=== PATIENT | female | born 1990 | race Caucasian/White ===

== ENCOUNTER 2017-01-27 17:10 | Emergency (ER) | payer BC, OTHER ==
[~2017-01-27] VITALS: Ht 167.6 cm; Wt 59.0 kg
[2017-01-27] MEDS ORDERED: NS IV 1000 ML 1,000 ML IV ONE (17:30)
[2017-01-27] MEDS ORDERED: diphenhydrAMINE 50 MG/ML INJ (BENADRYL) IVP ONE (17:30)
[2017-01-27] MEDS ORDERED: PROMETHAZINE INJ 25 MG/ML (PHENERGAN) AMP ONE (17:33)
[2017-01-27 18:21] LABS: ANION GAP 10 MMOL/L (5-14); BLOOD UREA NITROGEN 6 MG/DL (7-18); BUN/CREATININE RATIO 9; CALCIUM 8.5 MG/DL (8.5-10.1); CARBON DIOXIDE 23 MMOL/L (21-32); CHLORIDE 105 MMOL/L (98-107); CREATININE SERUM 0.64 MG/DL (0.60-1.30); GFR ESTIMATED > 60; GLUCOSE 74 MG/DL (70-105); POTASSIUM 3.3 MMOL/L (3.6-5.0); SODIUM 138 MMOL/L (135-145)
--- NOTE | 2017-01-27 18:33 | ED GI ---
General Stated Complaint: NAUSEA/17 WEEKS PREG Source of Information: Patient Exam Limitations: No Limitations History of Present Illness Time Seen By Provider: 17:20 Initial Comments This 26-year-old young lady at 17 weeks gestational age presents to the emergency room with lower abdominal cramping and intense nausea and vomiting. She has been using Zofran at home for hyperemesis but ran out today. She moved here from [place] and plans to see Dr. Hernández or Dr. Mc. She denies any vaginal bleeding, dysuria, fever, diarrhea, or constipation. heart tones by Doppler were 150. Allergies and Home Medications Allergies Coded Allergies: amoxicillin (Verified Allergy, Unknown, 01/27/17) Home Medications Doxylamine/Pyridoxine HCl 1 Each Tablet.dr, 2 EACH PO HS, #60 Prescribed by: BROOK GALINDO on 01/27/171937 Ondansetron 4 Mg Tab.rapdis, 4 MG SL Q4H PRN for NAUSEA/VOMITING-1ST LINE, #30 Prescribed by: BROOK GALINDO on 01/27/171937 Promethazine HCl 25 Mg Supp.rect, 25 MG RC TID PRN for NAUSEA/VOMITING-2ND LINE , #20 Prescribed by: BROOK GALINDO on 01/27/171937 Review of Systems Constitutional: no symptoms reported EENTM: No Symptoms Reported Respiratory: No Symptoms Reported Cardiovascular: No Symptoms Reported Gastrointestinal: See HPI Genitourinary: No Symptoms Reported Musculoskeletal: no symptoms reported Skin: no symptoms reported Psychiatric/Neurological: No Symptoms Reported Endocrine: No Symptoms Reported Hematologic/Lymphatic: No Symptoms Reported Past Yzibxsm-Aynlbo-Jffoxl Hx Patient Social History Recent Foreign Travel: No Contact w/Someone Who Travel: No Surgeries HX Surgeries: Yes Surgeries: Adenoidectomy, Tonsillectomy Respiratory Hx Respiratory Disorders: No Cardiovascular Hx Cardiac Disorders: No Neurological Hx Neurological Disorders: No Reproductive System : Yes Genitourinary Hx Genitourinary Disorders: No Gastrointestinal Hx Gastrointestinal Disorders: Yes (Hyperemesis) Musculoskeletal Hx Musculoskeletal Disorders: No Endocrine Hx Endocrine Disorders: No HEENT HX ENT Disorders: No Cancer Hx Cancer: No Psychosocial Hx Psychiatric Problems: No Physical Exam Vital Signs VS - Last 72 Hours, by Label 01/27/17 01/27/17 17:35 19:47 Temp 98.0 Pulse 86 74 Resp 18 18 B/P (MAP) 116/73 Pulse Ox 99 99 Capillary Refill : General Appearance: WD/WN, mild distress HEENT: PERRL/EOMI, normal ENT inspection, pharynx normal Neck: normal inspection Respiratory: lungs clear, normal breath sounds, no respiratory distress, no accessory muscle use Cardiovascular: no edema, no murmur, tachycardia Gastrointestinal: normal bowel sounds, soft, tenderness (Mild in the pelvic region) Extremities: normal inspection, no pedal edema Pelvic: other ( heart tones by Doppler were 150) Neurologic/Psychiatric: scraper meat II-XII nml as tested, no motor/sensory deficits, alert, normal mood/affect, oriented x 3 Skin: normal color, warm/dry Progress/Results/Core Measures Results/Orders Lab Results Laboratory Tests Test 01/27/17 17:35 01/27/17 18:44 Range/Units Sodium Level 138 135-145 MMOL/L Potassium Level 3.3 L 3.6-5.0 MMOL/L Chloride Level 105 98-107 MMOL/L Carbon Dioxide Level 23 21-32 MMOL/L Anion Gap 10 5-14 MMOL/L Blood Urea Nitrogen 6 L 7-18 MG/DL Creatinine 0.64 0.60-1.30 MG/DL Estimat Glomerular Filtration Rate > 60 BUN/Creatinine Ratio 9 Glucose Level 74 70-105 MG/DL Calcium Level 8.5 8.5-10.1 MG/DL Urine Color YELLOW Urine Clarity CLEAR Urine pH 7 5-9 Urine Specific [place] 1.010 L 1.016-1.022 Urine Protein NEGATIVE NEGATIVE Urine Glucose (UA) NEGATIVE NEGATIVE Urine Ketones 2+ H NEGATIVE Urine Nitrite NEGATIVE NEGATIVE Urine Bilirubin NEGATIVE NEGATIVE Urine Urobilinogen NORMAL NORMAL MG/DL Urine Leukocyte Esterase NEGATIVE NEGATIVE Urine RBC (Auto) NEGATIVE NEGATIVE Urine RBC NONE /HPF Urine WBC NONE /HPF Urine Squamous Epithelial Cells 5-10 /HPF Urine Crystals NONE /LPF Urine Bacteria NONE /HPF Urine Casts NONE /LPF Urine Mucus NEGATIVE /LPF Urine Culture Indicated NO My Orders Orders - BROOK PULLIAM MD Saline Lock/Iv-Start (01/27/17 17:30) Basic Metabolic Panel (01/27/17 17:30) Diphenhydramine Injection (Benadryl Inje (01/27/17 17:30) Ns Iv 1000 Ml (Sodium Chloride 0.9%) (01/27/17 17:30) Ua Culture If Indicated (01/27/17 17:33) Promethazine Injection (Phenergan Injec (01/27/17 17:33) Potassium Chloride (Tablet) (Klor Con Ta (01/27/17 19:00) Ondansetron Injection (Zofran Injectio (01/27/17 19:00) Medications Given in ED Vital Signs/I&O Vital Sign - Last 12Hours 01/27/17 01/27/17 17:35 19:47 Temp 98.0 Pulse 86 74 Resp 18 18 B/P (MAP) 116/73 Pulse Ox 99 99 Progress Note : Progress Note Patient was initially treated with Phenergan, Benadryl, and a liter of IV fluids. The Phenergan made her feel jittery and she still had some residual nausea. She was given Zofran by IV route. Cramping resolved. Potassium replacement was given by oral route Departure Impression Impression: Primary Impression: Vomiting affecting Additional Impression: Hypokalemia Disposition: 01 HOME, SELF-CARE Condition: Improved Departure-Patient Inst. Decision time for Depature: 19:34 Referrals: ABRIL HERNÁNDEZ DO (PCP) Primary Care Physician NO,LOCAL PHYSICIAN (Family) Primary Care Physician Patient Instructions: Hypokalemia Add. Discharge Instructions: Drink plenty of clear liquids. Resume Zofran as prescribed for control of nausea. You may also try Diclegis as prescribed. Use promethazine as a backup nausea medication if necessary. Taking Benadryl 50 mg by mouth with promethazine may reduce the side effects. Eat small frequent meals and snacks to reduce nausea. 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 Return to care if symptoms worsen. Scripts Doxylamine/Pyridoxine HCl (Diclegis Dr 10-10 mg Tablet) 1 Each Tablet.dr 2 EACH PO HS, #60 TAB Prov: BROOK PULLIAM MD 01/27/17 Promethazine HCl (Promethazine Suppository) 25 Mg Supp.rect 25 MG RC TID Y for NAUSEA/VOMITING-2ND LINE, #20 SUPP.RECT Prov: BROOK PULLIAM MD 01/27/17 Ondansetron (Zofran Odt) 4 Mg Tab.rapdis 4 MG SL Q4H Y for NAUSEA/VOMITING-1ST LINE, #30 TAB Prov: BROOK PULLIAM MD 01/27/17 BROOK PULLIAM MD Jan 27, 2017 18:33
[2017-01-27] MEDS ORDERED: ONDANSETRON 4 MG/2 ML (SDV) Z0FRAN IVP ONE (19:00)
[2017-01-27] MEDS ORDERED: KCL 10 MEQ TAB (MICRO K) PO ONE (19:00)
[2017-01-27 19:05] LABS: BILIRUBIN,URINE NEGATIVE (NEGATIVE); KETONES,URINE 2+ (NEGATIVE); LEUKOCYTE ESTERASE ,URINE NEGATIVE (NEGATIVE); NITRITE,URINE NEGATIVE (NEGATIVE); PH,URINE 7 (5-9); PROTEIN,URINE NEGATIVE (NEGATIVE); UROBILINOGEN,URINE NORMAL (NORMAL)
[2017-01-27] MEDS ORDERED: DOXY1TAB3 PO (19:38)
[2017-01-27] MEDS ORDERED: ONDA4TAB8 SL (19:38)
[2017-01-27] MEDS ORDERED: PROM25SU44 RC (19:38)
[2017-01-27 19:47] VITALS: BP 135/55
== END 2017-01-27 19:47 | disposition home or self-care (01) ==
LOC: EDUNIT# 17:10 → ER 17:15
DX: O21.1 Hyperemesis gravidarum with metabolic disturbance (principal); Z3A.17 17 weeks gestation of pregnancy
CPT/HCPCS: 36415; 80048; 81000; 96361; 96374; 96375

== ENCOUNTER → 2017-02-17 | Outpatient (CLI) | payer BC, MEDICAID ==
[~2017-02-17] MED LIST: DOXY1TAB3 PO; ONDA4TAB8 SL; PROM25SU44 RC
--- NOTE | 2017-02-17 12:00 | Diagnostic Imaging Report ---
INDICATION: survey. TECHNIQUE: Multiple real-time grayscale images were obtained over the gravid uterus. COMPARISON: None FINDINGS: There is a single intrauterine . heart rate is 158 beats per minute. The placenta is anterior. There is no placenta previa. The cervix is 3.3 cm in length and is closed. Amniotic fluid appears to be adequate. anatomy evaluation demonstrates unremarkable appearance of the stomach, four-chamber view, no hydronephrosis or cystic mass in the kidneys. Unremarkable appearance of the spine and the posterior fossa. 5 mm colloid cyst is seen. The cord insertion appears unremarkable. Three-vessel cord is not well demonstrated due to position. Biometrical measurements are as follows: Biparietal 4.5 cm, age 19 weeks 6 days. Head circumference 17.3 cm, age 20 weeks 0 days. Abdominal circumference 14.5 cm, age 19 weeks 6 days. Femur length 3.2 cm, age 20 weeks 1 days. Sonographic estimate age: 20 weeks 0 days. This compares to current gestational age of 19 weeks and 4 days based on assigned ADAMA of 07/10/2017. Sonographic estimated date of delivery: 07/07/17. Estimated Weight: 321 gm (+/- +/-47 gm). LMP percentile: 66%. heart rate: 158 beats per minute. number: 1 of 1. IMPRESSION: 1. There is a choroid plexus cyst in the right lateral ventricle which is a soft marker for chromosomal anomalies. Consider detailed anatomic evaluation in a specialized center. 2. Followup to reevaluate three-vessel cord is recommended. Dictated by: Dictated on workstation # [id number]
== END ==
LOC: RAD 10:11
PROVIDERS: ATTEND Obstetrics & Gynecology
DX: Z34.82 Encounter for supervision of other normal pregnancy, second trimester (principal)
CPT/HCPCS: 76805

== ENCOUNTER 2017-03-14 11:58 | Outpatient (CLI) | payer BC, MEDICAID ==
[~2017-03-14] VITALS: Ht 167.6 cm; Wt 61.7 kg
[2017-03-14 12:42] VITALS: BP 111/60
[2017-03-14] MEDS ORDERED: CITRIC ACID/SOB CIT (BICITRA) 30 ML UDC PO PRN (12:49)
[2017-03-14] MEDS ORDERED: D5 LR IV SOLUTION 1,000 ML IV SCH (13:00)
[2017-03-14] MEDS ORDERED: BUTORPHANOL INJ 2 MG/ML (STADOL) VIAL IV PRN (13:00)
[2017-03-14] MEDS: ONDANSETRON 4 MG/2 ML (SDV) Z0FRAN IVP PRN ×2 (13:52→17:45)
[2017-03-14 14:05] LABS: BASOPHILS # (AUTO) 0.1 10^3/uL (0.0-0.1); BASOPHILS % (AUTO) 1 % (0-10); EOSINOPHILS # (AUTO) 0.1 10^3/uL (0.0-0.3); EOSINOPHILS % (AUTO) 1 % (0-10); LYMPHOCYTES # (AUTO) 1.8 X 10^3 (1.0-4.0); LYMPHOCYTES % (AUTO) 16 % (12-44); MEAN CORPUSCULAR HEMOGLOBIN 29 PG (25-34); MEAN CORPUSCULAR HGB CONC 34 G/DL (32-36); MEAN CORPUSCULAR VOLUME 87 FL (80-99); MEAN PLATELET VOLUME 11.3 FL (7.4-10.4); MONOCYTES # (AUTO) 0.7 X 10^3 (0.0-1.0); MONOCYTES % (AUTO) 7 % (0-12); NEUTROPHILS # (AUTO) 8.1 X 10^3 (1.8-7.8); NEUTROPHILS % (AUTO) 76 % (42-75); PLATELET COUNT 266 10^3/uL (130-400); RED BLOOD COUNT 4.07 10^6/uL (4.35-5.85); RED CELL DISTRIBUTION WIDTH 12.9 % (10.0-14.5); WHITE BLOOD COUNT 10.7 10^3/uL (4.3-11.0)
[2017-03-14 14:22] LABS: ALANINE AMINOTRANSFERASE 21 U/L (0-55); ALBUMIN 3.7 G/DL (3.2-4.5); ANION GAP 12 MMOL/L (5-14); ASPARTATE AMINO TRANSFERASE 26 U/L (5-34); BILIRUBIN,TOTAL 0.6 MG/DL (0.1-1.0); BLOOD UREA NITROGEN 7 MG/DL (7-18); BUN/CREATININE RATIO 12; CALCIUM 9.5 MG/DL (8.5-10.1); CARBON DIOXIDE 22 MMOL/L (21-32); CHLORIDE 103 MMOL/L (98-107); CREATININE SERUM 0.59 MG/DL (0.60-1.30); GFR ESTIMATED > 60; GLUCOSE 72 MG/DL (70-105); POTASSIUM 3.8 MMOL/L (3.6-5.0); SODIUM 137 MMOL/L (135-145); TOTAL PROTEIN 6.8 G/DL (6.4-8.2)
[2017-03-14 14:39] LABS: BILIRUBIN,URINE NEGATIVE (NEGATIVE); KETONES,URINE 4+ (NEGATIVE); LEUKOCYTE ESTERASE ,URINE 1+ (NEGATIVE); NITRITE,URINE NEGATIVE (NEGATIVE); PH,URINE 7 (5-9); PROTEIN,URINE 1+ (NEGATIVE); SQUAMOUS EPITHELIAL CELL,UR 0-2 /HPF; UROBILINOGEN,URINE 4 MG/DL (NORMAL); WBC,URINE 0-2 /HPF
[2017-03-14] MEDS ORDERED: PNV11TAB5 PO (18:22)
[2017-03-14] MEDS ORDERED: CLIN150C17 PO (18:22)
== END 2017-03-14 19:30 | disposition home or self-care (01) ==
LOC: WSo 11:58 → LDRP 12:00 → WSo 19:30
PROVIDERS: ATTEND Obstetrics & Gynecology
DX: O99.612 Diseases of the digestive system complicating pregnancy, second trimester (principal); K21.9 Gastro-esophageal reflux disease without esophagitis; Z3A.23 23 weeks gestation of pregnancy
CPT/HCPCS: 36415; 80053; 81000; 85025; 87088; 96361; 96374; 96375; 96376; 99214

== ENCOUNTER 2017-03-30 14:08 | Outpatient (CLI) | payer BC, MEDICAID ==
[~2017-03-30] VITALS: Ht 167.6 cm; Wt 65.3 kg
[~2017-03-30 14:08] MED LIST changes: +CLIN150C17 PO; +PNV11TAB5 PO
[2017-03-30 14:28] VITALS: BP 137/68
[2017-03-30 14:44] VITALS: BP 112/60
[2017-03-30 15:00] VITALS: BP 113/62
[2017-03-30] MEDS ORDERED: D5 LR IV SOLUTION 1,000 ML IV ONE (15:02)
[2017-03-30] MEDS: D5 LR IV SOLUTION 1,000 ML IV SCH ×2 (15:20→17:02)
[2017-03-30] MEDS ORDERED: ONDANSETRON 4 MG/2 ML (SDV) Z0FRAN IVP ONE (15:30)
[2017-03-30 15:46] LABS: BASOPHILS % (AUTO) 0 % (0-10); EOSINOPHILS # (AUTO) 0.1 10^3/uL (0.0-0.3); EOSINOPHILS % (AUTO) 0 % (0-10); LYMPHOCYTES % (AUTO) 14 % (12-44); MEAN CORPUSCULAR HEMOGLOBIN 28 PG (25-34); MEAN CORPUSCULAR HGB CONC 32 G/DL (32-36); MEAN CORPUSCULAR VOLUME 88 FL (80-99); MEAN PLATELET VOLUME 11.2 FL (7.4-10.4); MONOCYTES # (AUTO) 0.7 X 10^3 (0.0-1.0); MONOCYTES % (AUTO) 5 % (0-12); NEUTROPHILS # (AUTO) 11.9 X 10^3 (1.8-7.8); NEUTROPHILS % (AUTO) 81 % (42-75); PLATELET COUNT 289 10^3/uL (130-400); RED BLOOD COUNT 3.77 10^6/uL (4.35-5.85); RED CELL DISTRIBUTION WIDTH 12.4 % (10.0-14.5); WHITE BLOOD COUNT 14.7 10^3/uL (4.3-11.0)
[2017-03-30 16:00] LABS: ALANINE AMINOTRANSFERASE 45 U/L (0-55); ALBUMIN 3.6 GM/DL (3.2-4.5); ANION GAP 11 MMOL/L (5-14); ASPARTATE AMINO TRANSFERASE 39 U/L (5-34); BILIRUBIN,TOTAL 0.5 MG/DL (0.1-1.0); BLOOD UREA NITROGEN 8 MG/DL (7-18); BUN/CREATININE RATIO 13 (0-20); CARBON DIOXIDE 24 MMOL/L (21-32); CHLORIDE 103 MMOL/L (98-107); CREATININE SERUM 0.61 MG/DL (0.60-1.30); GFR ESTIMATED > 60; GLUCOSE 90 MG/DL (70-105); HEMOLYSIS 5 (-100-29); LIPEMIA 23 (-100-49); POTASSIUM 3.3 MMOL/L (3.6-5.0); SODIUM 138 MMOL/L (135-145); TOTAL PROTEIN 6.5 GM/DL (6.4-8.2)
[2017-03-30 16:10] VITALS: BP 127/63
[2017-03-30 16:14] LABS: BAND NEUTROPHILS 2 %; BASOPHILS % (MANUAL) 0 %; EOSINOPHILS % (MANUAL) 0 %; LYMPHOCYTES % (MANUAL) 10 %; NEUTROPHILS % (MANUAL) 88 %
[2017-03-30 18:15] VITALS: BP 127/63
--- NOTE | 2017-03-31 15:16 | Physician Query-Final Dx ---
HOLLI CHANEY 03/31/17 1516: Clinic Account Progress/Dx Physician Query: Please give diagnosis Date of Service Mar 30, 2017 at 14:08 HAWA MAE MD 03/31/17 1750: Clinic Account Progress/Dx DIAGNOSIS: Diagnosis false labor HOLLI CHANEY Mar 31, 2017 15:16 HAWA MAE MD Mar 31, 2017 17:50
== END 2017-03-30 18:15 | disposition home or self-care (01) ==
LOC: WSo 14:08 → LDRP 14:09 → WSo 18:15
PROVIDERS: ATTEND Obstetrics & Gynecology
DX: O47.02 False labor before 37 completed weeks of gestation, second trimester (principal); Z3A.25 25 weeks gestation of pregnancy
CPT/HCPCS: 36415; 80053; 85007; 85027; 96361; 96374; 99214

== ENCOUNTER → 2017-04-15 | Outpatient (CLI) | payer BC, MEDICAID ==
[~2017-04-15] MED LIST changes: +ACET1TAB43 PO; +BENZ56AE2 TP; +DIPH25CA79 PO; +DOCU100C37 PO; +FERR-74 PO; +FERR-84 PO; +IBUP-1773 PO; +URSO300C3 PO
--- NOTE | 2017-04-15 11:47 | Diagnostic Imaging Report ---
INDICATION: Followup three-vessel cord. Choroid plexus cyst was seen previously. TECHNIQUE: Multiple real-time grayscale images were obtained over the gravid uterus. COMPARISON: 02/17/2017 FINDINGS: heart rate is 150 beats per minute. The placenta is anterior. No placenta previa. The position is cephalic. There is evidence of three-vessel cord. Normal amniotic fluid with CARMEL of 12.5 cm is seen. The lateral ventricles appear normal with no choroid plexus cyst seen at this time. IMPRESSION: Completed survey. Dictated by: Dictated on workstation # [id number]
== END ==
LOC: RAD 10:12
PROVIDERS: ATTEND Obstetrics & Gynecology
DX: Z36 Encounter for antenatal screening of mother (principal); Z3A.00 Weeks of gestation of pregnancy not specified
CPT/HCPCS: 76816

== ENCOUNTER 2017-04-23 14:55 | Outpatient (CLI) | payer BC, MEDICAID ==
[~2017-04-23] VITALS: Ht 167.6 cm; Wt 66.2 kg
[2017-04-23 14:55] VITALS: BP 128/84
[~2017-04-23 14:55] MED LIST changes: -ACET1TAB43 PO; -BENZ56AE2 TP; -DIPH25CA79 PO; -DOCU100C37 PO; -FERR-74 PO; -FERR-84 PO; -IBUP-1773 PO; -URSO300C3 PO
[2017-04-23 15:23] LABS: BILIRUBIN,URINE NEGATIVE (NEGATIVE); KETONES,URINE 2+ (NEGATIVE); LEUKOCYTE ESTERASE ,URINE 1+ (NEGATIVE); NITRITE,URINE NEGATIVE (NEGATIVE); PH,URINE 7 (5-9); PROTEIN,URINE 2+ (NEGATIVE); UROBILINOGEN,URINE 1 MG/DL (NORMAL)
[2017-04-23] MEDS ORDERED: FERR-84 PO ×2 (15:26)
[2017-04-23 15:30] VITALS: BP 107/70
[2017-04-23 15:41] LABS: CALCIUM OXALATE CRYSTALS,UR MODERATE /LPF; SQUAMOUS EPITHELIAL CELL,UR 25-50 /HPF
[2017-04-23 16:00] VITALS: BP 109/61
[2017-04-23] MEDS ORDERED: D5 LR IV SOLUTION 1,000 ML IV SCH (16:00)
[2017-04-23] MEDS ORDERED: NS IV 1000 ML 1,000 ML IV SCH (16:00)
[2017-04-23] MEDS ORDERED: ONDANSETRON 4 MG/2 ML (SDV) Z0FRAN IVP ONE (16:00)
[2017-04-23 16:30] VITALS: BP 117/73
[2017-04-23 16:30] LABS: MEAN PLATELET VOLUME 11.1 FL (7.4-10.4); RED BLOOD COUNT 3.62 10^6/uL (4.35-5.85); RED CELL DISTRIBUTION WIDTH 12.7 % (10.0-14.5); WHITE BLOOD COUNT 14.4 10^3/uL (4.3-11.0)
[2017-04-23 16:53] LABS: ALANINE AMINOTRANSFERASE 71 U/L (0-55); ALBUMIN 3.3 GM/DL (3.2-4.5); ANION GAP 10 MMOL/L (5-14); ASPARTATE AMINO TRANSFERASE 44 U/L (5-34); BILIRUBIN,TOTAL 0.6 MG/DL (0.1-1.0); BLOOD UREA NITROGEN 6 MG/DL (7-18); BUN/CREATININE RATIO 10; CALCIUM 8.8 MG/DL (8.5-10.1); CARBON DIOXIDE 23 MMOL/L (21-32); CHLORIDE 103 MMOL/L (98-107); CREATININE SERUM 0.58 MG/DL (0.60-1.30); GFR ESTIMATED > 60; GLUCOSE 77 MG/DL (70-105); POTASSIUM 3.6 MMOL/L (3.6-5.0); SODIUM 136 MMOL/L (135-145); TOTAL PROTEIN 6.3 GM/DL (6.4-8.2)
[2017-04-23 17:00] VITALS: BP 114/64
[2017-04-23 20:22] VITALS: BP 124/64
--- NOTE | 2017-04-24 10:12 | Physician Query-Final Dx ---
BRANDON MCARTHUR 04/24/17 1012: Clinic Account Progress/Dx Physician Query: Please give diagnosis Date of Service Apr 23, 2017 at 14:55 ABRIL HERNÁNDEZ DO 05/26/17 1434: Clinic Account Progress/Dx DIAGNOSIS: Diagnosis vomiting dehydration BRANDON MCARTHUR Apr 24, 2017 10:12 ABRIL HERNÁNDEZ DO May 26, 2017 14:34
[2017-06-18] MEDS ORDERED: BENZ56AE2 TP (11:03)
[2017-06-18] MEDS ORDERED: IBUP-1773 PO (11:03)
[2017-06-18] MEDS ORDERED: ACET1TAB43 PO (11:03)
[2017-06-18] MEDS ORDERED: DOCU100C37 PO (11:03)
[2017-06-18] MEDS ORDERED: FERR-74 PO (11:03)
[2017-06-19] MEDS ORDERED: URSO300C3 PO (08:58)
== END 2017-04-23 21:18 | disposition home or self-care (01) ==
LOC: LDRP 14:55 → WSo 14:55
PROVIDERS: ATTEND Obstetrics & Gynecology
DX: O21.2 Late vomiting of pregnancy (principal); O99.283 Endocrine, nutritional and metabolic diseases complicating pregnancy, third trimester; E86.0 Dehydration; Z3A.29 29 weeks gestation of pregnancy
CPT/HCPCS: 36415; 80053; 80074; 81000; 85027; 87088; 96361; 96374; 99213

== ENCOUNTER 2017-05-01 08:53 | Outpatient (CLI) | payer BC, MEDICAID ==
[~2017-05-01] VITALS: Ht 167.6 cm; Wt 65.3 kg
[~2017-05-01 08:53] MED LIST changes: +FERR-84 PO
[2017-05-01 09:20] VITALS: BP 132/91
[2017-05-01] MEDS ORDERED: LACTATED RINGERS 1,000 ML IV SCH (10:15)
[2017-05-01] MEDS ORDERED: PROCHLORPERAZINE 10 MG/2ML INJ (COMPAZINE) IV NR (10:15)
[2017-05-01 10:20] VITALS: BP 180/102
[2017-05-01 10:53] LABS: BASOPHILS % (AUTO) 0 % (0-10); EOSINOPHILS # (AUTO) 0.1 10^3/uL (0.0-0.3); EOSINOPHILS % (AUTO) 1 % (0-10); LYMPHOCYTES # (AUTO) 2.4 X 10^3 (1.0-4.0); LYMPHOCYTES % (AUTO) 18 % (12-44); MEAN CORPUSCULAR HEMOGLOBIN 28 PG (25-34); MEAN CORPUSCULAR HGB CONC 32 G/DL (32-36); MEAN CORPUSCULAR VOLUME 85 FL (80-99); MEAN PLATELET VOLUME 11.1 FL (7.4-10.4); MONOCYTES # (AUTO) 0.9 X 10^3 (0.0-1.0); MONOCYTES % (AUTO) 7 % (0-12); NEUTROPHILS # (AUTO) 10.3 X 10^3 (1.8-7.8); NEUTROPHILS % (AUTO) 75 % (42-75); PLATELET COUNT 261 10^3/uL (130-400); RED BLOOD COUNT 3.99 10^6/uL (4.35-5.85); RED CELL DISTRIBUTION WIDTH 13.4 % (10.0-14.5); WHITE BLOOD COUNT 13.7 10^3/uL (4.3-11.0)
[2017-05-01 11:00] VITALS: BP 100/54
[2017-05-01 11:13] LABS: ALANINE AMINOTRANSFERASE 71 U/L (0-55); ALBUMIN 3.4 GM/DL (3.2-4.5); ANION GAP 13 MMOL/L (5-14); ASPARTATE AMINO TRANSFERASE 37 U/L (5-34); BILIRUBIN,TOTAL 0.9 MG/DL (0.1-1.0); BLOOD UREA NITROGEN 5 MG/DL (7-18); BUN/CREATININE RATIO 9; CALCIUM 8.7 MG/DL (8.5-10.1); CARBON DIOXIDE 20 MMOL/L (21-32); CHLORIDE 104 MMOL/L (98-107); CREATININE SERUM 0.58 MG/DL (0.60-1.30); GFR ESTIMATED > 60; GLUCOSE 73 MG/DL (70-105); POTASSIUM 3.5 MMOL/L (3.6-5.0); SODIUM 137 MMOL/L (135-145); TOTAL PROTEIN 6.4 GM/DL (6.4-8.2)
[2017-05-01 11:30] VITALS: BP 116/56
[2017-05-01] MEDS ORDERED: METOCLOPRAMIDE INJ 10 MG/2 ML (REGLAN) IVP SCH (12:00)
[2017-05-01] MEDS ORDERED: D5 LR W/KCL 20 MEQ/L 1,000 ML IV SCH (12:15)
[2017-05-01] MEDS ORDERED: CATHETER FLUSH 10 ML SYR IV PRN (12:15)
[2017-05-01] MEDS ORDERED: diphenhydrAMINE 25 MG TAB (BENADRYL) PO NR (13:15)
--- NOTE | 2017-05-01 15:56 | Discharge Inst-Women's Service ---
Discharge Inst-Women's Serv Depart Medication/Instructions Instructions Hold zofran Start Diclegis (called into pharmacy) 2 po at night and then increase to 1 in am and 2 pm [place] diet, fluids Hold all smoking, including marijuana Final Diagnosis Hyperemesis Marijuana smoking cyclic vomiting Consults/Follow Up Additional Follow Up: Yes (As scheduled with Dr. Mc) Activity Activity: Activity as Tolerated Driving Instructions: You May Drive NO SMOKING: NO SMOKING Nothing Inside Vagina: No Douching, No [place], No Tampons Diet Discharge Diet: No Restrictions Symptoms to Report to : Fever Over 101 Degrees F, Cough Up/Vomit Blood, Nausea/Vomiting (unable to keep down water) For Any Problems or Questions: Contact Your Physician ABRIL HERNÁNDEZ DO May 01, 2017 15:56
[2017-05-01] MEDS ORDERED: ONDANSETRON 8 MG (ZOFRAN) ORAL DISSOLVE TAB PO NR (16:00)
[2017-05-01] MEDS ORDERED: DOXY1TAB3 PO ×2 (16:03)
[2017-05-01 16:13] VITALS: BP 108/65
--- NOTE | 2017-05-04 12:56 | Physician Query-Final Dx ---
BRANDON MCARTHUR 05/04/17 1256: Clinic Account Progress/Dx Physician Query: Please give diagnosis Date of Service May 01, 2017 at 08:53 ABRIL HERNÁNDEZ DO 05/26/17 1435: Clinic Account Progress/Dx DIAGNOSIS: Diagnosis vomiting in Marijuana usage BRANDON MCARTHUR May 04, 2017 12:56 ABRIL HERNÁNDEZ DO May 26, 2017 14:35
[2017-06-18] MEDS ORDERED: BENZ56AE2 TP (11:03)
[2017-06-18] MEDS ORDERED: IBUP-1773 PO (11:03)
[2017-06-18] MEDS ORDERED: ACET1TAB43 PO (11:03)
[2017-06-18] MEDS ORDERED: DOCU100C37 PO (11:03)
[2017-06-18] MEDS ORDERED: FERR-74 PO (11:03)
[2017-06-19] MEDS ORDERED: URSO300C3 PO (08:58)
== END 2017-05-01 16:30 | disposition home or self-care (01) ==
LOC: WSo 08:53 → LDRP 08:53 → WSo 16:30
PROVIDERS: ATTEND Obstetrics & Gynecology
DX: O21.2 Late vomiting of pregnancy (principal); O99.323 Drug use complicating pregnancy, third trimester; F12.90 Cannabis use, unspecified, uncomplicated; Z3A.30 30 weeks gestation of pregnancy
CPT/HCPCS: 36415; 80053; 80306; 85025; 96361; 96374; 96375; 99213

== ENCOUNTER 2017-06-16 19:05 | Inpatient (IN) | payer BC, MEDICAID ==
[~2017-06-16] VITALS: Ht 170.2 cm; Wt 68.9 kg
[2017-06-16 19:11] VITALS: BP 142/79
[2017-06-16] MEDS ORDERED: LACTATED RINGERS 1,000 ML IV SCH (19:21)
[2017-06-16 19:27] LABS: BILIRUBIN,URINE NEGATIVE (NEGATIVE); KETONES,URINE NEGATIVE (NEGATIVE); LEUKOCYTE ESTERASE ,URINE 1+ (NEGATIVE); NITRITE,URINE NEGATIVE (NEGATIVE); PH,URINE 6.5 (5-9); PROTEIN,URINE 1+ (NEGATIVE); UROBILINOGEN,URINE 1 MG/DL (NORMAL)
[2017-06-16] MEDS ORDERED: MINERAL OIL CONCENTRATE 99.9% 15 ML UDC TOP PRN (19:30)
[2017-06-16 19:35] LABS: WBC,URINE 0-2 /HPF
[2017-06-16] MEDS: D5 LR IV SOLUTION 1,000 ML IV SCH (19:40)
[2017-06-16 20:01] LABS: BASOPHILS % (AUTO) 0 % (0-10); EOSINOPHILS # (AUTO) 0.1 10^3/uL (0.0-0.3); EOSINOPHILS % (AUTO) 1 % (0-10); LYMPHOCYTES # (AUTO) 2.6 X 10^3 (1.0-4.0); LYMPHOCYTES % (AUTO) 24 % (12-44); MEAN CORPUSCULAR HEMOGLOBIN 25 PG (25-34); MEAN CORPUSCULAR HGB CONC 31 G/DL (32-36); MEAN CORPUSCULAR VOLUME 80 FL (80-99); MEAN PLATELET VOLUME 12.1 FL (7.4-10.4); MONOCYTES # (AUTO) 0.4 X 10^3 (0.0-1.0); MONOCYTES % (AUTO) 4 % (0-12); NEUTROPHILS # (AUTO) 7.5 X 10^3 (1.8-7.8); NEUTROPHILS % (AUTO) 70 % (42-75); PLATELET COUNT 308 10^3/uL (130-400); RED BLOOD COUNT 4.11 10^6/uL (4.35-5.85); RED CELL DISTRIBUTION WIDTH 14.5 % (10.0-14.5); WHITE BLOOD COUNT 10.8 10^3/uL (4.3-11.0)
[2017-06-16] MEDS ORDERED: ONDANSETRON 4 MG/2 ML (SDV) Z0FRAN IVP PRN (20:15)
[2017-06-16] MEDS ORDERED: MISOPROSTOL 100 MCG (CYTOTEC) TAB PO NR (20:15)
[2017-06-16] MEDS ORDERED: diphenhydrAMINE 50 MG/ML INJ (BENADRYL) IVP PRN (20:15)
[2017-06-16] MEDS ORDERED: HYDROmorphone (DILAUDID) 2 MG/ML VIAL IVP ONE (20:15)
[2017-06-16 21:00] VITALS: BP 139/75
[2017-06-16 22:00] VITALS: BP 132/72
[2017-06-16 22:30] VITALS: BP 127/72
[2017-06-16 23:00] VITALS: BP 123/64
[2017-06-17] VITALS (33 sets, daily range): BP systolic 105–177; BP diastolic 54–124
[2017-06-17] MEDS ORDERED: MISOPROSTOL 100 MCG (CYTOTEC) TAB PO SCH (00:15)
[2017-06-17] MEDS ORDERED: HYDROmorphone (DILAUDID) 2 MG/ML VIAL ONE (01:08)
[2017-06-17] MEDS: D5 LR IV SOLUTION 1,000 ML IV SCH (02:10)
[2017-06-17] MEDS: CATHETER FLUSH 10 ML SYR IV SCH ×2 (02:11→10:02)
[2017-06-17] MEDS ORDERED: HYDROmorphone (DILAUDID) 2 MG/ML VIAL IVP ONE (05:00)
[2017-06-17] MEDS ORDERED: DIPH25CA79 PO (05:05)
[2017-06-17] MEDS ORDERED: URSO300C3 PO (05:06)
[2017-06-17] MEDS ORDERED: SUFENTA 0.6MCG/ML BUPIVA 0.125 100 ML ONE (05:33)
[2017-06-17] MEDS ORDERED: fentaNYL INJECTION 100 MCG/2 ML AMP ONE (06:32)
[2017-06-17] MEDS ORDERED: LACTATED RINGERS 1,000 ML IV SCH (06:44)
[2017-06-17] MEDS ORDERED: EPIDURAL (SUFENTA 0.6MCG/ML BUPIVA 0.125%) 100 ML BAG EPI PRN (06:45)
[2017-06-17] MEDS ORDERED: NALOXONE 0.4 MG/ML 1 ML (NARCAN) VIAL IV PRN ×2 (06:45)
[2017-06-17] MEDS ORDERED: diphenhydrAMINE 50 MG/ML INJ (BENADRYL) IV PRN (06:45)
[2017-06-17] MEDS ORDERED: METOCLOPRAMIDE INJ 10 MG/2 ML (REGLAN) IV PRN (06:45)
[2017-06-17] MEDS ORDERED: ONDANSETRON 4 MG/2 ML (SDV) Z0FRAN IV PRN (06:45)
[2017-06-17] MEDS ORDERED: OXYTOCIN/NORMAL SALINE 500 ML IV ONE (06:50)
[2017-06-17] MEDS ORDERED: LIDOCAINE/EPI 2% 1:200,00 (XYLOCAINE) 10 ML VIAL ONE (07:05)
[2017-06-17] MEDS: OXYTOCIN/NORMAL SALINE 500 ML IV SCH ×2 (08:12→09:58)
--- NOTE | 2017-06-17 08:38 | OB Labor & Delivery Record ---
L&D History Date of Service Date of Service: Jun 17, 2017 History Expected Date of Delivery: Jul 08, 2017 Gestational Age in Weeks: 36 Complications Events: Routine care (cholestasis of ) Operative Indications (Cesarea: N/A-Vaginal Delivery Intrapartal Events: Extnded Bradycardia, Ineffective Pushing L&D Stage1 Stage One Onset of Labor - Date: Jun 17, 2017 Monitors and Tracing Monitor Mode: External Heart Rate: 155 Monitor Decelerations: Variable Station: -2 Fdc Variability: Average (6-10) Short Term Variability: Present Presentation: Vertex Vital Signs VS - Last 72 Hours, by Label 06/16/17 06/16/17 06/16/17 06/16/17 19:11 21:00 22:00 22:30 Temp 96.8 Pulse 94 71 68 82 Resp 18 18 18 18 B/P (MAP) 142/79 139/75 132/72 127/72 O2 Delivery Room Air Room Air Room Air Room Air 06/16/17 06/16/17 06/17/17 06/17/17 23:00 23:30 00:00 00:30 Pulse 77 66 Resp 18 18 18 18 B/P (MAP) 123/64 113/54 O2 Delivery Room Air Room Air Room Air Room Air 06/17/17 06/17/17 06/17/17 06/17/17 00:52 01:00 01:30 02:00 Temp 97.6 Pulse 62 Resp 20 18 18 18 B/P (MAP) 123/74 O2 Delivery Room Air Room Air Room Air Room Air 06/17/17 06/17/17 06/17/17 06/17/17 02:30 03:00 03:30 04:00 Pulse 62 61 Resp 18 18 18 18 B/P (MAP) 125/81 123/80 O2 Delivery Room Air Room Air Room Air Room Air 06/17/17 06/17/17 06/17/17 06/17/17 04:30 05:00 06:00 06:23 Temp 97.9 Pulse 83 77 89 Resp 18 18 18 18 B/P (MAP) 143/71 133/77 156/89 Pulse Ox 100 O2 Delivery Room Air Room Air Room Air Room Air 06/17/17 06/17/17 06/17/17 06/17/17 06:26 06:29 06:32 06:35 Pulse 74 72 66 63 Resp 18 18 18 18 B/P (MAP) 134/64 131/64 124/60 122/57 Pulse Ox 94 99 99 O2 Delivery Room Air Room Air Room Air Room Air 06/17/17 06/17/17 06/17/17 06/17/17 06:38 06:41 06:44 06:49 Pulse 67 62 58 59 Resp 18 18 18 18 B/P (MAP) 119/58 128/60 126/65 118/71 Pulse Ox 98 98 98 97 O2 Delivery Room Air Room Air Room Air Room Air 06/17/17 06/17/17 06/17/17 06:54 06:59 07:05 Temp 96.9 Pulse 67 72 65 Resp 18 18 18 B/P (MAP) 119/63 105/59 116/64 Pulse Ox 100 99 O2 Delivery Room Air Room Air Non Rebreather O2 Flow Rate 15.00 Rupture of Membranes Amniotic Membrane Rupture Time: 0525 Amniotic Membrane Fluid Desc.: Clear Amniotic Fluid Membrane Tests: Nitrazine Positive Vaginal Bleeding Description: Normal Show Progress/Notes 100 g of Cytotec was given by mouth, the patient initiated in the labor without further augmentation and spontaneously ruptured membranes. L&D Stage2 Stage Two Stage II Date: Jun 17, 2017 Monitors and Tracing Monitor Mode: External Heart Rate: 155 Position: Right Occiput Anterior Presentation: Vertex Cord Descript/Complications Cord Vessel Description: 3 Vessels Complications Nuchal cord 2 Delivery Type Delivery Method: Low Vacuum Extraction Anterior Shoulder: Right Episiotomy/Perineal Laceration Laceraction(s)/Extensions: Yes Episiotomy Description: Right Mediolateral Location Modifier: Right Degree (describe repair) The patient progressed the vertex at +3 station at this point the began having deep variable decelerations down into the 70s and ineffective maternal pushing was noted at this point to facilitate urgent delivery I proceeded with a low vacuum extraction. I placed a Kiwi vacuum extractor down the mid sagittal plane with gentle traction I was able to extend the head at which point the vacuum pressure is released and the infant's head is delivered over a right mediolateral. Anterior posterior shoulders were delivered and the infant is brought onto the maternal abdomen. The RML is repaired using 30 and 2-0 Vicryl suture in normal fashion Condition of Infant Delivery 1 minute Comment: 8 5 minute Comment: 9 Notes Live male weighing 6 lbs. 3 oz. Condition of Infant Condition of Infant: Living Exam: No Observed Abnormalities Resuscitation Resuscitation: N/A - Spontaneous Resp L&D Stage3 Stage Three Stage III Date: Jun 17, 2017 Pictocin Pitocin Administration Comment: 30 milliunits wide open at delivery of placenta Placenta Delivery Placenta Delivery: Spontaneous Delivery Summary Summary blood loss >1000ml: No Condition of Delivery Examined: Cervix Examined, Uterus Explored Post Hemorrhage: No Condition of Mother stable Condition of Infant (s) stable EUGENEGUNNER Abdirizak TURK Jun 17, 2017 08:38
--- NOTE | 2017-06-17 08:42 | History & Physical-OB ---
OB - Chief Complaint & HPI Date/Time Date of Admission: Date of Admission: Jun 16, 2017 at 19:05 Time Seen by Provider: 07:00 Chief Complaint/History OB-Reason for Admission/Chief: Induction of Labor Hx : 1 Hx Para: 0 Expected Date of Delivery: Jul 08, 2017 Gestational Age in Weeks: 36 Admission Nurse Assessment Rev: Yes History of Labs O pos Antibody +(D) RI RPR NR HBsAg NR HIV NR GC neg GBS neg Allergies and Home Medications Allergies Coded Allergies: amoxicillin (Verified Allergy, Unknown, 01/27/17) promethazine (Unverified Adverse Reaction, Mild, Patient report makes her extremely anxious, 05/01/17) Patient report makes her extremely anxious Home Medications Diphenhydramine HCl 25 Mg Capsule, 25 MG PO PRN, (Reported) [id number]/FA/Omega3/Dha/Fish Oil 1 Each Tab.chew, 2 EACH PO DAILY, (Reported) Ursodiol 300 Mg Capsule, 300 MG PO TID, (Reported) OB - History Hx of Present Care: Yes Ultrasounds: Normal mid trimester US Obstetrical Complications: Other (intrahepatic cholestasis of ) Medical Complications: None (nausea and vomiting) Delivery History Adverse Rxn to Tranfusion: No Patient Past Medical History n/a Social History/Family History Recent Infectious Disease Expo: No Alcohol Use: Denies Use Recreational Drug Use: No OB - Admission Exam Physical Exam Date Seen by Provider: Jun 17, 2017 Time Seen by Provider: 07:00 Vitals: Vital Signs 06/17/17 07:05 Temp 96.9 Pulse 65 Resp 18 B/P (MAP) 116/64 Pulse Ox 99 O2 Delivery Non Rebreather O2 Flow Rate 15.00 HEENT: NCAT Heart: Rhythm Normal Lungs: Clear Abdomen: Gravid Extremities: Normal Reflexes: Normal Cervical Dilatation: 1cm Effacement: 75% Station: -1 Membranes: Intact Heart Rate: 130's Accelerations: Accelerations Present Decelerations: No Decelerations Short Term Variability: Present Half-Way Variability: Average (6-25) Intensity: Mild Labs Laboratory Tests Test 06/16/17 19:10 06/16/17 19:40 Range/Units Urine Color YELLOW Urine Clarity CLEAR Urine pH 6.5 5-9 Urine Specific [place] 1.015 L 1.016-1.022 Urine Protein 1+ H NEGATIVE Urine Glucose (UA) NEGATIVE NEGATIVE Urine Ketones NEGATIVE NEGATIVE Urine Nitrite NEGATIVE NEGATIVE Urine Bilirubin NEGATIVE NEGATIVE Urine Urobilinogen 1 NORMAL MG/DL Urine Leukocyte Esterase 1+ H NEGATIVE Urine RBC (Auto) NEGATIVE NEGATIVE Urine RBC NONE /HPF Urine WBC 0-2 /HPF Urine Squamous Epithelial Cells 2-5 /HPF Urine Crystals NONE /LPF Urine Bacteria NONE /HPF Urine Casts NONE /LPF Urine Mucus SMALL H /LPF Urine Culture Indicated NO White Blood Count 10.8 4.3-11.0 10^3/uL Red Blood Count 4.11 L 4.35-5.85 10^6/uL Hemoglobin 10.3 L 11.5-16.0 G/DL Hematocrit 33 L 35-52 % Mean Corpuscular Volume 80 80-99 FL Mean Corpuscular Hemoglobin 25 25-34 PG Mean Corpuscular Hemoglobin Concent 31 L 32-36 G/DL Red Cell Distribution Width 14.5 10.0-14.5 % Platelet Count 308 130-400 10^3/uL Mean Platelet Volume 12.1 H 7.4-10.4 FL Neutrophils (%) (Auto) 70 42-75 % Lymphocytes (%) (Auto) 24 12-44 % Monocytes (%) (Auto) 4 0-12 % Eosinophils (%) (Auto) 1 0-10 % Basophils (%) (Auto) 0 0-10 % Neutrophils # (Auto) 7.5 1.8-7.8 X 10^3 Lymphocytes # (Auto) 2.6 1.0-4.0 X 10^3 Monocytes # (Auto) 0.4 0.0-1.0 X 10^3 Eosinophils # (Auto) 0.1 0.0-0.3 10^3/uL Basophils # (Auto) 0.0 0.0-0.1 10^3/uL OB - Assessment/Plan/Diagnosis Assessment Assessment: induction of labor Plan Plan: Induction Induction Method: per Misoprostol Protocol Discharge Diagnosis Diagnosis: 27 yo @ 37 weeks Intrahepatic cholestasis of GBS negative FENECH,GUNNER Reveles DO Jun 17, 2017 08:42
[2017-06-17] MEDS ORDERED: BENZOCAINE/MENTHOL (DERMOPLAST) 56 ML CAN TP PRN (08:45)
[2017-06-17] MEDS ORDERED: MEASLES,MUMPS,RUBELLA 1 EA INJ SQ ONE (08:45)
[2017-06-17] MEDS ORDERED: WITCH HAZEL(TUCKS) 40 EA JAR TOP PRN (08:45)
[2017-06-17] MEDS ORDERED: TETANUS,DIPTH,PERTUSS P/F (BOOSTRIX) 0.5 ML VIAL IM ONE (08:45)
[2017-06-17] MEDS ORDERED: DIBUCAINE (NUPERCAINAL) 1% OINT 30 GM TOP PRN (08:45)
[2017-06-17] MEDS: DOCUSATE SODIUM 100 MG (COLACE) CAP PO SCH ×2 (09:45→20:04)
[2017-06-17] MEDS: IBUPROFEN 600 MG (MOTRIN) TAB PO SCH ×4 (09:45→23:39)
[2017-06-17] MEDS: FERROUS SULF 325 MG (IRON) TAB PO SCH (09:45)
[2017-06-17] MEDS: APAP 300 MG/CODEINE 30 MG (TYLENOL #3) TAB PO PRN (13:25)
[2017-06-17] MEDS ORDERED: CATHETER FLUSH 10 ML SYR IV SCH (14:00)
[2017-06-18] MEDS: APAP 300 MG/CODEINE 30 MG (TYLENOL #3) TAB PO PRN ×3 (03:26→14:23)
[2017-06-18 04:01] VITALS: BP 113/63
[2017-06-18] MEDS: IBUPROFEN 600 MG (MOTRIN) TAB PO SCH ×4 (05:56→23:54)
[2017-06-18 06:03] LABS: BASOPHILS # (AUTO) 0.1 10^3/uL (0.0-0.1); BASOPHILS % (AUTO) 0 % (0-10); EOSINOPHILS # (AUTO) 0.1 10^3/uL (0.0-0.3); EOSINOPHILS % (AUTO) 1 % (0-10); LYMPHOCYTES # (AUTO) 2.9 X 10^3 (1.0-4.0); LYMPHOCYTES % (AUTO) 20 % (12-44); MEAN CORPUSCULAR HEMOGLOBIN 25 PG (25-34); MEAN CORPUSCULAR HGB CONC 31 G/DL (32-36); MEAN CORPUSCULAR VOLUME 81 FL (80-99); MEAN PLATELET VOLUME 12.1 FL (7.4-10.4); MONOCYTES # (AUTO) 0.7 X 10^3 (0.0-1.0); MONOCYTES % (AUTO) 5 % (0-12); NEUTROPHILS # (AUTO) 10.8 X 10^3 (1.8-7.8); NEUTROPHILS % (AUTO) 74 % (42-75); PLATELET COUNT 270 10^3/uL (130-400); RED BLOOD COUNT 3.24 10^6/uL (4.35-5.85); RED CELL DISTRIBUTION WIDTH 14.4 % (10.0-14.5); WHITE BLOOD COUNT 14.5 10^3/uL (4.3-11.0)
[2017-06-18 07:59] VITALS: BP 115/80
[2017-06-18] MEDS: DOCUSATE SODIUM 100 MG (COLACE) CAP PO SCH ×2 (08:01→20:31)
[2017-06-18] MEDS: FERROUS SULF 325 MG (IRON) TAB PO SCH (08:01)
[2017-06-18] MEDS: PRENATAL VITAMIN 1 EA TAB PO SCH (08:02)
--- NOTE | 2017-06-18 10:50 | Progress Note-Standard ---
Standard Progress Note Progress Notes/Assess & Plan Date Seen by Provider: Jun 18, 2017 Time Seen by Provider: 10:00 Progress/Assessment & Plan Patient is doing well day 1 vacuum-assisted vaginal delivery. The patient reports good pain control. Reports lochia is minimal. She still is having some residual itching, she also has some burning in her lower abdomen over the area of the uterus otherwise she is doing well. Vital Sign - Last 24 Hours 06/17/17 06/17/17 06/17/17 06/17/17 12:25 16:20 19:55 23:48 Temp 98.0 97.3 97.0 98.0 Pulse 57 60 72 72 Resp 16 16 16 18 B/P (MAP) 111/68 108/67 111/69 108/72 Pulse Ox 100 100 99 O2 Delivery Room Air Room Air Room Air Room Air 06/18/17 06/18/17 04:01 07:59 Temp 97.6 97.9 Pulse 59 64 Resp 18 18 B/P (MAP) 113/63 115/80 Pulse Ox 99 99 O2 Delivery Room Air Uterine fundus firm and palpated Laboratory Tests Test 06/18/17 05:40 Range/Units White Blood Count 14.5 H 4.3-11.0 10^3/uL Red Blood Count 3.24 L 4.35-5.85 10^6/uL Hemoglobin 8.1 #L 11.5-16.0 G/DL Hematocrit 26 L 35-52 % Mean Corpuscular Volume 81 80-99 FL Mean Corpuscular Hemoglobin 25 25-34 PG Mean Corpuscular Hemoglobin Concent 31 L 32-36 G/DL Red Cell Distribution Width 14.4 10.0-14.5 % Platelet Count 270 130-400 10^3/uL Mean Platelet Volume 12.1 H 7.4-10.4 FL Neutrophils (%) (Auto) 74 42-75 % Lymphocytes (%) (Auto) 20 12-44 % Monocytes (%) (Auto) 5 0-12 % Eosinophils (%) (Auto) 1 0-10 % Basophils (%) (Auto) 0 0-10 % Neutrophils # (Auto) 10.8 H 1.8-7.8 X 10^3 Lymphocytes # (Auto) 2.9 1.0-4.0 X 10^3 Monocytes # (Auto) 0.7 0.0-1.0 X 10^3 Eosinophils # (Auto) 0.1 0.0-0.3 10^3/uL Basophils # (Auto) 0.1 0.0-0.1 10^3/uL Diagnosis: PPD 1 VAVD Cholestasis of Acute blood loss anemia P: Continue routine PP care Replace iron Anticipate dc tomorrow. GUNNER KNIGHT DO Jun 18, 2017 10:50 am
--- NOTE | 2017-06-18 11:01 | Discharge Inst-Women's Service ---
Discharge Inst-Women's Serv Depart Medication/Instructions New, Converted or Re-Newed RX: RX on Chart Consults/Follow Up Additional Follow Up: Yes Orders/Referrals Dr. Knight in 6 weeks Activity Activity: Activity as Tolerated Driving Instructions: No Driving for 1 Week NO SMOKING: NO SMOKING Nothing Inside Vagina: No Douching, No [place], No Tampons Diet Discharge Diet: No Restrictions Symptoms to Report to : Bleeding Excessive, Pain Increased, Fever Over 101 Degrees F, Vaginal Bleeding Increase, Questions/Concerns For Any Problems or Questions: Contact Your Physician Skin/Wound Care Bathing Instructions: Shower (x 2 weeks) GUNNER KNIGHT DO Jun 18, 2017 11:01
[2017-06-18] MEDS ORDERED: FERR-74 PO (11:03)
[2017-06-18] MEDS ORDERED: ACET1TAB43 PO (11:03)
[2017-06-18] MEDS ORDERED: DOCU100C37 PO (11:03)
[2017-06-18] MEDS ORDERED: BENZ56AE2 TP (11:03)
[2017-06-18] MEDS ORDERED: IBUP-1773 PO (11:03)
--- NOTE | 2017-06-18 13:47 | Anesthesia-Regional Post-Op ---
Regional Patient Condition Mental Status: Alert, Oriented x3 Circulation: Same as Pre-Op Headache: Absent Sensation: Full Recovery Motor Block: Absent Post Op Complications Complications None Follow Up Care/Instructions Patient Instructions None needed. Anesthesia/Patient Condition Patient is doing well, no complaints, stable vital signs, no apparent adverse anesthesia problems. No complications reported per nursing. NASIM GOERGE CRNA Jun 18, 2017 13:47
[2017-06-18] MEDS: ONDANSETRON 4 MG (ZOFRAN) ORAL DISSOLVE TAB PO PRN ×2 (14:23→20:25)
[2017-06-18 14:30] VITALS: BP 118/75
[2017-06-18 20:00] VITALS: BP 117/78
[2017-06-19] VITALS: BP 111/68
[2017-06-19 04:25] VITALS: BP 119/61
[2017-06-19 04:30] VITALS: BP 119/91
[2017-06-19] MEDS: IBUPROFEN 600 MG (MOTRIN) TAB PO SCH ×2 (05:54→12:30)
[2017-06-19 08:15] VITALS: BP 128/81
[2017-06-19] MEDS: FERROUS SULF 325 MG (IRON) TAB PO SCH ×2 (08:50→09:10)
[2017-06-19] MEDS: DOCUSATE SODIUM 100 MG (COLACE) CAP PO SCH ×2 (08:50→09:10)
[2017-06-19] MEDS: PRENATAL VITAMIN 1 EA TAB PO SCH ×2 (08:50→09:11)
[2017-06-19] MEDS ORDERED: URSO300C3 PO (08:58)
--- NOTE | 2017-06-19 09:10 | Progress Note-Standard ---
Standard Progress Note Progress Notes/Assess & Plan Date Seen by Provider: Jun 19, 2017 Time Seen by Provider: 08:35 Progress/Assessment & Plan Patient is doing well day 2 vacuum-assisted vaginal delivery. The patient reports good pain control. Reports lochia is minimal. She still is having some residual itching. She reports a burning in her lower abdomen has resolved Vital Sign - Last 24 Hours 06/18/17 06/18/17 06/19/17 06/19/17 14:30 20:00 00:00 04:25 Temp 97.8 98.4 97.6 97.2 Pulse 56 73 68 75 Resp 16 18 16 18 B/P (MAP) 118/75 117/78 111/68 119/61 Pulse Ox 100 99 98 98 O2 Delivery Room Air Room Air Room Air Room Air 06/19/17 06/19/17 04:30 08:15 Temp 97.2 97.6 Pulse 75 71 Resp 18 20 B/P (MAP) 119/91 128/81 Pulse Ox 98 O2 Delivery Room Air Room Air Diagnosis: PPD 2 VAVD Cholestasis of Acute blood loss anemia P: Continue routine PP care Replace iron Discharge today, patient told to continue ursodiol 300 mg twice a day until itching resolved GUNNER KNIGHT DO Jun 19, 2017 9:10 am
[2017-06-19 12:00] VITALS: BP 117/69
[2017-06-19] MEDS ORDERED: TETANUS,DIPTH,PERTUSS P/F (BOOSTRIX) 0.5 ML VIAL IM ONE (14:08)
== END 2017-06-19 15:20 | disposition home or self-care (01) | DRG 775 ==
LOC: LDRP 19:05
PROVIDERS: ADMIT Obstetrics & Gynecology; ATTEND Obstetrics & Gynecology
PROC: 3E0DXGC Introduction of Other Therapeutic Substance into Mouth and Pharynx, External Approach (ICD-10-PCS; 2017-06-16)
PROC: 10D07Z6 Extraction of Products of Conception, Vacuum, Via Natural or Artificial Opening (ICD-10-PCS; principal; 2017-06-17)
PROC: 0W8NXZZ Division of Female Perineum, External Approach (ICD-10-PCS; principal; 2017-06-17)
DX: O26.62 Liver and biliary tract disorders in childbirth (principal); O69.81X0 Labor and delivery complicated by cord around neck, without compression, not applicable or unspecified; O76 Abnormality in fetal heart rate and rhythm complicating labor and delivery; O75.81 Maternal exhaustion complicating labor and delivery; O90.81 Anemia of the puerperium; D62 Acute posthemorrhagic anemia; Z37.0 Single live birth; Z3A.37 37 weeks gestation of pregnancy; Z23 Encounter for immunization
CPT/HCPCS: 36415; 81000; 85025; 86850; 86900; 86901; 88307; 90715

== ENCOUNTER → 2019-03-25 | Outpatient (CLI) | payer BC, MEDICAID ==
[~2019-03-25] MED LIST changes: +ACET1TAB43 PO; +BENZ56AE2 TP; +DIPH25CA79 PO; +DOCU100C37 PO; +FERR325T18 PO; +IBUP-1773 PO; +URSO300C3 PO
--- NOTE | 2019-03-25 18:12 | Diagnostic Imaging Report ---
INDICATION: . TECHNIQUE: Multiple real-time grayscale images were obtained over the gravid uterus. COMPARISON: None FINDINGS: Transabdominal imaging of the gravid uterus demonstrates a single live intrauterine with heart rate of 158 beats per minute. CARMEL appears normal. Presentation at this time is cephalic. Gestational age by today's ultrasound is 20 weeks and 5 days with an ADAMA of 08/07/2019. Gestational age by first sono is reported to be 20 weeks 4 days. Cervical length is 4.7 cm. No visceral abnormalities are present. Cord insertion appears normal. Placenta is anterior with no previa. IMPRESSION: Normal single live intrauterine with gestational age of 20 weeks 5 days by today's ultrasound. Biometrical measurements are as follows: Biparietal 4.77 cm, age 20 weeks 3 days. Head circumference 18.20 cm, age 20 weeks 5 days. Abdominal circumference 15.36 cm, age 20 weeks 4 days. Femur length 3.46 cm, age 21 weeks 0 days. Sonographic estimate age: 20 weeks 5 days. Sonographic estimated date of delivery: 08/07/2019. Estimated Weight: 371 gm (+/- 54 gm). LMP percentile: 52%. heart rate: 158 beats per minute. number: 1 of 1. Dictated by: Dictated on workstation # [id number]
== END ==
LOC: RAD 15:52
PROVIDERS: ATTEND Obstetrics & Gynecology
DX: Z34.92 Encounter for supervision of normal pregnancy, unspecified, second trimester (principal); Z3A.20 20 weeks gestation of pregnancy
CPT/HCPCS: 76805

== ENCOUNTER 2019-07-22 23:16 | Outpatient (CLI) | payer MEDICAID ==
[~2019-07-22] VITALS: Ht 167.7 cm; Wt 76.0 kg
--- NOTE | 2019-07-22 23:20 | NUR ---
RADHA VALENZUELA presented to unit via wc from ED, accompanied by s/o and staff, with c/o LOST MUCUS PLUG, CONTRACTIONS. RADHA VALENZUELA weighed, gowned, voided, and to bed. EFHM and TOCO applied, VS taken. RADHA VALENZUELA oriented to bed controls, call light, TV, heat, and A/C controls. ASSESSSMENTS TO FOLLOW PER ANABEL CARVER RN.
--- NOTE | 2019-07-22 23:26 | NUR ---
Dr Cheema called with report, order for discharge obtained at this time.
[2019-07-22] MEDS ORDERED: ONDA4TAB11 PO (23:34)
[2019-07-22 23:35] VITALS: BP 141/73
[2019-07-22 23:38] VITALS: BP 141/73
--- NOTE | 2019-07-23 00:07 | NUR ---
Pt discharged to home with verbal and written discharge instructions. Pt educated on labor precautions and ambulated to private vehicle with SO.
--- NOTE | 2019-07-25 08:19 | Physician Query-Final Dx ---
Clinic Account Progress/Dx Physician Query: Please give diagnosis Please include # weeks gestation Date of Service Jul 22, 2019 at 23:16 LOIDA WHITE Jul 25, 2019 08:19
[2019-07-27] MEDS ORDERED: DOCU100C37 PO ×2 (08:41)
[2019-07-27] MEDS ORDERED: IBUP-844 PO ×2 (08:41)
[2019-07-27] MEDS ORDERED: ACHD5005 PO ×2 (08:41)
[2019-07-27] MEDS ORDERED: FERR325T18 PO ×2 (08:41)
[2019-07-27] MEDS ORDERED: Benzocaine/Menthol TP ×2 (08:41)
== END 2019-07-23 00:07 | disposition home or self-care (01) ==
LOC: WSo 23:16 → LDRP 23:17 → WSo 07-23 00:07
PROVIDERS: ATTEND Obstetrics & Gynecology
DX: O62.8 Other abnormalities of forces of labor (principal); Z3A.00 Weeks of gestation of pregnancy not specified
CPT/HCPCS: 99212

== ENCOUNTER 2019-07-25 12:51 | Inpatient (IN) | payer MEDICAID ==
[2019-07-25] VITALS (34 sets, daily range): BP systolic 95–136; BP diastolic 52–81
[~2019-07-25] VITALS: Ht 167.7 cm; Wt 76.0 kg
[~2019-07-25 12:51] MED LIST changes: +ONDA4TAB11 PO
[2019-07-25 13:22] LABS: CLARITY,URINE CLEAR; COLOR,URINE AMBER; GLUCOSE, URINE (UA) NEGATIVE (NEGATIVE); KETONES,URINE NEGATIVE (NEGATIVE); LEUKOCYTE ESTERASE ,URINE 2+ (NEGATIVE); NITRITE,URINE NEGATIVE (NEGATIVE); PH,URINE 6 (5-9); PROTEIN,URINE 2+ (NEGATIVE); UROBILINOGEN,URINE 8 MG/DL (NORMAL)
[2019-07-25 14:02] LABS: BACTERIA,URINE FEW /HPF; CALCIUM OXALATE CRYSTALS,UR FEW /LPF; SQUAMOUS EPITHELIAL CELL,UR TNTC /HPF
--- NOTE | 2019-07-25 14:15 | NUR ---
DR HALE CALLED, WILL CALL DR KNIGHT
--- NOTE | 2019-07-25 14:38 | NUR ---
DR KNIGHT CALLED, UPDATE GIVEN, NEW ORDERS TO ADMIT PT FOR LABOR.
[2019-07-25] MEDS ORDERED: MINERAL OIL CONCENTRATE 99.9% 15 ML UDC TOP PRN (17:00)
[2019-07-25 17:05] LABS: BASOPHILS % (AUTO) 0 % (0-10); EOSINOPHILS # (AUTO) 0.1 10^3/uL (0.0-0.3); EOSINOPHILS % (AUTO) 1 % (0-10); HEMATOCRIT 38 % (35-52); HEMOGLOBIN 11.8 G/DL (11.5-16.0); LYMPHOCYTES # (AUTO) 1.9 X 10^3 (1.0-4.0); LYMPHOCYTES % (AUTO) 14 % (12-44); MEAN CORPUSCULAR HEMOGLOBIN 26 PG (25-34); MEAN CORPUSCULAR HGB CONC 31 G/DL (32-36); MEAN CORPUSCULAR VOLUME 84 FL (80-99); MEAN PLATELET VOLUME 11.7 FL (7.4-10.4); MONOCYTES # (AUTO) 0.9 X 10^3 (0.0-1.0); MONOCYTES % (AUTO) 6 % (0-12); NEUTROPHILS # (AUTO) 11.1 X 10^3 (1.8-7.8); NEUTROPHILS % (AUTO) 79 % (42-75); PLATELET COUNT 266 10^3/uL (130-400); RED CELL DISTRIBUTION WIDTH 14.5 % (10.0-14.5)
[2019-07-25] MEDS: D5 LR IV SOLUTION 1,000 ML IV SCH (17:10)
--- NOTE | 2019-07-25 17:11 | NUR ---
PT TRANSFERRED TO ROOM 3317 FOR LABOR, AMBULATED WITHOUT DIFFICULTY.
[2019-07-25 17:33] LABS: EOSINOPHILS % (MANUAL) 1 %; LYMPHOCYTES % (MANUAL) 17 %; MONOCYTES % (MANUAL) 6 %; NEUTROPHILS % (MANUAL) 76 %; RBC MORPH NORMAL
--- NOTE | 2019-07-25 18:00 | NUR ---
DR KNIGHT CALLED, UPDATE GIVEN, NEW ORDERS TO START PITOCIN PROTOCOL.
[2019-07-25] MEDS ORDERED: OXYTOCIN/NORMAL SALINE 500 ML IV SCH (18:06)
[2019-07-25] MEDS ORDERED: OXYTOCIN/NORMAL SALINE 500 ML IV ONE (18:43)
[2019-07-25] MEDS ORDERED: LACTATED RINGERS 1,000 ML IV ONE ×2 (19:50→21:04)
[2019-07-25] MEDS ORDERED: SUFENTA 0.6MCG/ML BUPIVA 0.125 100 ML ONE (20:20)
[2019-07-25] MEDS ORDERED: BUPIVACAINE 0.25% 30 ML (SENSORCAINE) VIAL ONE (20:24)
[2019-07-25] MEDS ORDERED: fentaNYL INJECTION 100 MCG/2 ML AMP ONE (20:24)
[2019-07-25] MEDS ORDERED: ONDANSETRON 4 MG/2 ML (SDV) Z0FRAN ONE (21:02)
[2019-07-25] MEDS ORDERED: CATHETER FLUSH 10 ML SYR IV PRN (21:15)
[2019-07-25] MEDS ORDERED: EPIDURAL (SUFENTA 0.6MCG/ML BUPIVA 0.125%) 100 ML BAG EPI SCH (21:15)
[2019-07-25] MEDS ORDERED: NALOXONE 0.4 MG/ML 1 ML (NARCAN) VIAL IV PRN (21:15)
[2019-07-25] MEDS ORDERED: CATHETER FLUSH 10 ML SYR IV SCH (22:00)
[2019-07-25] MEDS: IBUPROFEN 600 MG (MOTRIN) TAB PO SCH (23:30)
[2019-07-26] VITALS (12 sets, daily range): BP systolic 100–133; BP diastolic 54–79
[2019-07-26] MEDS ORDERED: OXYTOCIN/NORMAL SALINE 500 ML IV SCH (00:01)
--- NOTE | 2019-07-26 00:05 | History & Physical-OB ---
OB - Chief Complaint & HPI Date/Time Date of Admission: Date of Admission: Jul 25, 2019 at 2:42 pm Date seen by a Provider: Jul 25, 2019 Time Seen by a Provider: 23:15 Chief Complaint/History OB-Reason for Admission/Chief: Hx : 2 Hx Para: 1 Expected Date of Delivery: Aug 08, 2019 Gestational Age in Weeks: 38 Gestational Age in Days: 0 Other reason for admission: Patient presented for suspected SROM, and was noted to have 2 variable decels on monitor, and kept for delivery. Admission Nurse Assessment Rev: Yes Allergies and Home Medications Allergies Coded Allergies: amoxicillin (Verified Allergy, Unknown, 01/27/17) promethazine (Unverified Adverse Reaction, Mild, Patient report makes her extremely anxious, 05/01/17) Patient report makes her extremely anxious Home Medications Ondansetron 4 Mg Tab.rapdis, 4 MG PO NEEDED, (Reported) Patient Home Medication List Home Medication List Reviewed: Yes OB - History Hx of Present Care: Yes Ultrasounds: Normal mid trimester US Obstetrical Complications: None Medical Complications: None Obstetrical History Hx : 2 Hx Para: 1 Delivery History Adverse Rxn to Tranfusion: No Patient Past Medical History n/a Social History/Family History Recent Infectious Disease Expo: No Alcohol Use: Denies Use Recreational Drug Use: No 2nd Hand Smoke Exposure: Yes OB - Admission Exam Physical Exam Vitals: Vital Signs 07/25/19 07/25/19 21:27 23:00 Temp 36.1 Pulse 71 Resp 20 B/P (MAP) 110/59 (76) Pulse Ox 100 O2 Delivery Room Air HEENT: NCAT Heart: Rhythm Normal Lungs: Clear Abdomen: Gravid Cervical Dilatation: 5cm Effacement: 75% Station: -1 Membranes: Intact Heart Rate: 130's Accelerations: Accelerations Present Decelerations: No Decelerations Short Term Variability: Present Usp Variability: Average (6-25) Contractions on Admission: < 5 Minutes Apart Intensity: Mild Labs Laboratory Tests Test 07/25/19 13:10 07/25/19 15:40 Range/Units Urine Color ANIRUDH H Urine Clarity CLEAR Urine pH 6 5-9 Urine Specific [place] 1.025 H 1.016-1.022 Urine Protein 2+ H NEGATIVE Urine Glucose (UA) NEGATIVE NEGATIVE Urine Ketones NEGATIVE NEGATIVE Urine Nitrite NEGATIVE NEGATIVE Urine Bilirubin 1+ icto=neg NEGATIVE Urine Urobilinogen 8 H NORMAL MG/DL Urine Leukocyte Esterase 2+ H NEGATIVE Urine RBC (Auto) NEGATIVE NEGATIVE Urine RBC NONE /HPF Urine WBC 5-10 H /HPF Urine Squamous Epithelial Cells TNTC H /HPF Urine Crystals PRESENT H /LPF Urine Calcium Oxalate Crystals FEW H /LPF Urine Bacteria FEW H /HPF Urine Casts NONE /LPF Urine Mucus NEGATIVE /LPF Urine Culture Indicated YES White Blood Count 14.0 H 4.3-11.0 10^3/uL Red Blood Count 4.47 4.35-5.85 10^6/uL Hemoglobin 11.8 11.5-16.0 G/DL Hematocrit 38 35-52 % Mean Corpuscular Volume 84 80-99 FL Mean Corpuscular Hemoglobin 26 25-34 PG Mean Corpuscular Hemoglobin Concent 31 L 32-36 G/DL Red Cell Distribution Width 14.5 10.0-14.5 % Platelet Count 266 130-400 10^3/uL Mean Platelet Volume 11.7 H 7.4-10.4 FL Neutrophils (%) (Auto) 79 H 42-75 % Lymphocytes (%) (Auto) 14 12-44 % Monocytes (%) (Auto) 6 0-12 % Eosinophils (%) (Auto) 1 0-10 % Basophils (%) (Auto) 0 0-10 % Neutrophils # (Auto) 11.1 H 1.8-7.8 X 10^3 Lymphocytes # (Auto) 1.9 1.0-4.0 X 10^3 Monocytes # (Auto) 0.9 0.0-1.0 X 10^3 Eosinophils # (Auto) 0.1 0.0-0.3 10^3/uL Basophils # (Auto) 0.0 0.0-0.1 10^3/uL Neutrophils % (Manual) 76 % Lymphocytes % (Manual) 17 % Monocytes % (Manual) 6 % Eosinophils % (Manual) 1 % Blood Morphology Comment NORMAL OB - Assessment/Plan/Diagnosis Assessment Assessment: other Admission Dx 29 yo @ 38 weeks Prolonged latent phase labor heart rate decelerations GBS neg Admission Status: Inpatient Order (span 2 midnights) Reason for Inpatient Admission: Delivery at term Plan Plan: Induction Induction Method: per Pitocin Protocol GUNNER KNIGHT DO Jul 26, 2019 12:05 am
--- NOTE | 2019-07-26 00:08 | OB Labor & Delivery Record ---
L&D History Date of Service Date of Service: Jul 25, 2019 History Expected Date of Delivery: Aug 08, 2019 Gestational Age in Weeks: 38 Hx : 2 Hx Para: 1 Complications Events: Routine care Operative Indications (Cesarea: N/A-Vaginal Delivery Intrapartal Events: None L&D Stage1 Stage One Onset of Labor - Date: Jul 26, 2019 Monitors and Tracing Monitor Mode: External Heart Rate: 140 Monitor Decelerations: Variable Station: -2 Short Term Variability: Present Presentation: Vertex Vital Signs VS - Last 72 Hours, by Label 07/25/19 07/25/19 07/25/19 07/25/19 13:05 13:10 13:35 14:05 Temp 36.4 36.4 Pulse 88 88 91 86 Resp 20 18 20 20 B/P (MAP) 111/72 (85) 114/73 (87) 110/60 (77) O2 Delivery Room Air Room Air Room Air Room Air 07/25/19 07/25/19 07/25/19 07/25/19 14:35 15:05 15:35 16:05 Pulse 83 86 79 83 Resp 20 20 20 20 B/P (MAP) 118/75 (89) 110/59 (76) 124/61 (82) 113/56 (75) O2 Delivery Room Air Room Air Room Air Room Air 07/25/19 07/25/19 07/25/19 07/25/19 16:35 17:05 18:10 18:18 Temp 36.5 36.4 Pulse 97 79 83 88 Resp 20 20 20 20 B/P (MAP) 112/64 (80) 111/65 (80) 114/73 (87) Pulse Ox 99 O2 Delivery Room Air Room Air Room Air Room Air 07/25/19 07/25/19 07/25/19 07/25/19 19:20 19:35 20:15 20:35 Temp 36.0 Pulse 90 83 78 98 Resp 20 20 20 20 B/P (MAP) 113/65 (81) 129/69 (89) 132/81 (98) 136/81 (99) Pulse Ox 100 O2 Delivery Room Air Room Air Room Air Room Air 07/25/19 07/25/19 07/25/19 07/25/19 20:40 20:45 20:50 20:55 Pulse 83 99 91 85 Resp 20 20 20 20 B/P (MAP) 132/72 (92) 132/67 (88) 117/56 (76) 105/55 (72) Pulse Ox 100 100 100 93 O2 Delivery Room Air Room Air Room Air Room Air 07/25/19 07/25/19 07/25/19 07/25/19 21:00 21:05 21:10 21:15 Pulse 71 80 80 85 Resp 20 20 20 20 B/P (MAP) 104/55 (71) 103/57 (72) 112/65 (81) 111/67 (82) Pulse Ox 97 99 99 99 O2 Delivery Room Air Room Air Room Air Room Air 07/25/19 07/25/19 07/25/19 07/25/19 21:20 21:27 21:30 21:45 Temp 36.1 Pulse 63 87 107 76 Resp 20 20 20 20 B/P (MAP) 113/69 (84) 95/52 (66) 100/59 (73) 102/58 (73) Pulse Ox 96 99 98 99 O2 Delivery Room Air Room Air Room Air Room Air 07/25/19 07/25/19 07/25/19 07/25/19 22:00 22:15 22:45 23:00 Pulse 81 81 62 71 Resp 20 20 20 20 B/P (MAP) 111/58 (75) 106/57 (73) 106/58 (74) 110/59 (76) Pulse Ox 97 100 100 100 O2 Delivery Room Air Room Air Room Air Room Air Rupture of Membranes Spontaneous Ruture of Membrane: No Amniotic Membrane Rupture Time: 23:30 Amniotic Membrane Fluid Desc.: Bloody Vaginal Bleeding Description: Normal Show Induction/Anesthesia Epidural Cath Placement - Time: 21:30 Progress/Notes Patient admitted and labor augmented with Pitocin, she received epidural and progressed to complete and intact, when I was contacted to present for delivery L&D Stage2 Stage Two Stage II Date: Jul 25, 2019 Monitors and Tracing Monitor Mode: External Heart Rate: 140 Monitor Decelerations: Variable Halfway Variability: Average (6-10) Short Term Variability: Present Position: Right Occiput Anterior Presentation: Vertex Cord Descript/Complications Cord Vessel Description: 3 Vessels Delivery Type Delivery Method: Spontaneous Vaginal Anterior Shoulder: Right Episiotomy/Perineal Laceration Laceraction(s)/Extensions: Yes Episiotomy Description: Midline Degree (describe repair) midline episiotomy repaired using 3-0 rapide and 2-0 vicryl suture in usual fashion Condition of Delivery 1 minute Comment: 8 5 minute Comment: 9 Notes Live female weight 6lbs 8 oz Condition of Infant Condition of Infant: Living Exam: No Observed Abnormalities Resuscitation Resuscitation: N/A - Spontaneous Resp L&D Stage3 Stage Three Stage III Date: Jul 26, 2019 Pictocin Pitocin Administration mu/min: 2 Pitocin ml/hr: 2 Pitocin Administration Comment: PITOCIN STARTED wide open x 2 bags at delivery of placenta Placenta Delivery Placenta Delivery: Spontaneous Delivery Summary Summary Estimated blood loss (mL): 300 Attending at delivery: Gunner Knight DO Condition of Delivery Examined: Cervix Examined, Uterus Explored Post Hemorrhage: No Condition of Mother stable Condition of (s) stable GUNNER KNIGHT DO Jul 26, 2019 12:08 am
[2019-07-26] MEDS ORDERED: TETANUS,DIPTH,PERTUSS P/F (BOOSTRIX) 0.5 ML VIAL IM ONE (00:15)
[2019-07-26] MEDS ORDERED: MEASLES,MUMPS,RUBELLA 1 EA INJ SQ ONE (00:15)
[2019-07-26] MEDS ORDERED: IBUPROFEN 600 MG (MOTRIN) TAB PO ONE ×2 (01:50→05:43)
[2019-07-26] MEDS: BENZOCAINE/MENTHOL (DERMOPLAST) 56 ML CAN TP PRN (01:54)
[2019-07-26] MEDS: WITCH HAZEL(TUCKS) 40 EA JAR TOP PRN (01:54)
[2019-07-26] MEDS: IBUPROFEN 600 MG (MOTRIN) TAB PO SCH ×5 (01:55→23:40)
[2019-07-26] MEDS: D5 LR IV SOLUTION 1,000 ML IV SCH (01:56)
--- NOTE | 2019-07-26 03:30 | NUR ---
Pt up to void and moved to PP room,
[2019-07-26] MEDS ORDERED: CATHETER FLUSH 10 ML SYR IV SCH (06:00)
--- NOTE | 2019-07-26 08:10 | NUR ---
DR. KNIGHT HERE.
[2019-07-26] MEDS: FERROUS SULF 325 MG (IRON) TAB PO SCH (08:25)
[2019-07-26] MEDS: PRENATAL VITAMIN 1 EA TAB PO SCH (08:25)
[2019-07-26] MEDS: DOCUSATE SODIUM 100 MG (COLACE) CAP PO SCH ×2 (08:25→19:46)
--- NOTE | 2019-07-26 08:30 | NUR ---
PT RESTING IN BED. VS OBTAINED. MEDS GIVEN PO; SEE EMAR FOR FURTHER. INITIAL SHIFT ASSESSMENT COMPLETED; SEE INTERVENTION FOR FURTHER. NO NEEDS VOICED. CALL LIGHT WITHIN REACH. PT PREPPING TO REST/SLEEP LONGER, BLINDS DRAWN. S/O SLEEPING AT THE BEDSIDE.
[2019-07-26] MEDS ORDERED: FLU QUADRIvalent (5+ YOA) 2019-2020 (AFLURIA) 0.5 ML IM ONE (08:45)
--- NOTE | 2019-07-26 09:25 | Anesthesia-Regional Post-Op ---
Regional Patient Condition Mental Status: Alert, Oriented x3 Circulation: Same as Pre-Op Headache: Absent Sensation: Full Recovery Motor Block: Absent Post Op Complications Complications None Follow Up Care/Instructions Patient Instructions None needed. Anesthesia/Patient Condition Patient is doing well, no complaints, stable vital signs, no apparent adverse anesthesia problems. No complications reported per nursing. PAUL VITALE CRNA Jul 26, 2019 09:25
[2019-07-26] MEDS ORDERED: ONDANSETRON 4 MG/2 ML (SDV) Z0FRAN IVP PRN (10:30)
[2019-07-26] MEDS: HYDROcodone/APAP 5 MG/325 MG (LORTAB) TAB PO PRN ×3 (10:40→21:22)
--- NOTE | 2019-07-26 12:35 | NUR ---
PT UP IN ROOM, HOLDING INFANT. VS OBTAINED. ROOM SERVICE JUST DELIVERED LUNCH. NO NEEDS VOICED.
--- NOTE | 2019-07-27 01:10 | NUR ---
pt aroused and up in bed to bf infant.
[2019-07-27] MEDS: HYDROcodone/APAP 5 MG/325 MG (LORTAB) TAB PO PRN ×3 (03:06→11:57)
--- NOTE | 2019-07-27 05:40 | NUR ---
lab here at this time.
[2019-07-27 05:49] VITALS: BP 101/61
[2019-07-27] MEDS: IBUPROFEN 600 MG (MOTRIN) TAB PO SCH ×2 (05:49→11:57)
--- NOTE | 2019-07-27 05:50 | NUR ---
pt sitting up in bed, fresh ice water and ice chips given per request, infant handed to pt to feed.
[2019-07-27 06:02] LABS: BASOPHILS % (AUTO) 0 % (0-10); EOSINOPHILS # (AUTO) 0.2 10^3/uL (0.0-0.3); EOSINOPHILS % (AUTO) 2 % (0-10); HEMATOCRIT 32 % (35-52); HEMOGLOBIN 9.9 G/DL (11.5-16.0); LYMPHOCYTES # (AUTO) 2.9 X 10^3 (1.0-4.0); LYMPHOCYTES % (AUTO) 27 % (12-44); MEAN CORPUSCULAR HEMOGLOBIN 26 PG (25-34); MEAN CORPUSCULAR HGB CONC 31 G/DL (32-36); MEAN CORPUSCULAR VOLUME 85 FL (80-99); MEAN PLATELET VOLUME 11.7 FL (7.4-10.4); MONOCYTES # (AUTO) 0.8 X 10^3 (0.0-1.0); MONOCYTES % (AUTO) 7 % (0-12); NEUTROPHILS % (AUTO) 64 % (42-75); PLATELET COUNT 239 10^3/uL (130-400); RED CELL DISTRIBUTION WIDTH 14.8 % (10.0-14.5); WHITE BLOOD COUNT 10.9 10^3/uL (4.3-11.0)
[2019-07-27 08:00] VITALS: BP 120/75
--- NOTE | 2019-07-27 08:00 | NUR ---
A.M. ASSESSMENT COMPLETED. VSS. CARING FOR IN ROOM. GOOD INTERACTION NOTED.
[2019-07-27] MEDS: PRENATAL VITAMIN 1 EA TAB PO SCH (08:10)
[2019-07-27] MEDS: FERROUS SULF 325 MG (IRON) TAB PO SCH (08:10)
[2019-07-27] MEDS: DOCUSATE SODIUM 100 MG (COLACE) CAP PO SCH (08:10)
--- NOTE | 2019-07-27 08:39 | Postpartum Progress Note ---
Note Note Day # 1 Subjective: Patient is without complaints. Ambulating, voiding. Tolerating a regular diet without nausea or vomiting. Normal lochia. Pain is well controlled with oral pain medications. Objective: Physical Exam: General - Alert and oriented, no apparent distress Abdomen - Soft, appropriately tender to palpation, non-distended, fundus firm at umbilicus Extremities - no edema, negative Fer's bilaterally Assessment: PPD 1 NVD Acute blood loss anemia Plan: Routine care. Encourage breast feeding. Encourage ambulation. Ferrous sulfate supplementation. Plan for discharge today Vitals - Labs Vital Signs - I&O Vital Signs Date Time Temp Pulse Resp B/P (MAP) Pulse Ox O2 Delivery O2 Flow Rate FiO2 07/27/19 05:49 35.7 62 16 101/61 (74) 99 Room Air 07/26/19 23:43 36.5 70 18 109/60 (76) 97 Room Air 07/26/19 19:40 36.8 80 18 125/59 (81) 99 Room Air 07/26/19 16:03 36.5 60 18 114/56 (75) 96 Room Air 07/26/19 12:35 36.3 85 18 125/79 (94) 96 Room Air Labs Laboratory Tests 07/27/19 05:40: White Blood Count 10.9, Red Blood Count 3.79L, Hemoglobin 9.9L, Hematocrit 32L, Mean Corpuscular Volume 85, Mean Corpuscular Hemoglobin 26, Mean Corpuscular Hemoglobin Concent 31L, Red Cell Distribution Width 14.8H, Platelet Count 239, Mean Platelet Volume 11.7H, Neutrophils (%) (Auto) 64, Lymphocytes (%) (Auto) 27, Monocytes (%) (Auto) 7, Eosinophils (%) (Auto) 2, Basophils (%) (Auto) 0, Neutrophils # (Auto) 7.0, Lymphocytes # (Auto) 2.9, Monocytes # (Auto) 0.8, Eosinophils # (Auto) 0.2, Basophils # (Auto) 0.0 Microbiology 07/25/19 Urine Culture - Final, Complete 3 or more isolates GUNNER KNIGHT DO Jul 27, 2019 08:39
[2019-07-27] MEDS ORDERED: Benzocaine/Menthol TP ×2 (08:41)
[2019-07-27] MEDS ORDERED: DOCU100C37 PO ×2 (08:41)
[2019-07-27] MEDS ORDERED: ACHD5005 PO ×2 (08:41)
[2019-07-27] MEDS ORDERED: FERR325T18 PO ×2 (08:41)
[2019-07-27] MEDS ORDERED: IBUP-844 PO ×2 (08:41)
--- NOTE | 2019-07-27 08:42 | Discharge Inst-Women's Service ---
Discharge Inst-Women's Serv Depart Medication/Instructions New, Converted or Re-Newed RX: RX on Chart Final Diagnosis PPD1 NVD Problems Reviewed?: Yes Consults/Follow Up Additional Follow Up: Yes Orders/Referrals Dr. Knight in 6 weeks Activity Activity: Activity as Tolerated Driving Instructions: No Driving for 1 Week NO SMOKING: NO SMOKING Nothing Inside Vagina: No Douching, No [place], No Tampons Diet Discharge Diet: No Restrictions Symptoms to Report to : Bleeding Excessive, Pain Increased, Fever Over 101 Degrees F, Vaginal Bleeding Increase, Questions/Concerns For Any Problems or Questions: Contact Your Physician GUNNER KNIGHT DO Jul 27, 2019 08:42
--- NOTE | 2019-07-27 09:55 | NUR ---
CALLED BLOOD BANK TO CHECK ON RHOGAM. NOT READY AT THIS TIME.
--- NOTE | 2019-07-27 10:00 | NUR ---
RESTING IN BED. NNO APPARENT PROBLEMS.
[2019-07-27] MEDS ORDERED: TETANUS,DIPTH,PERTUSS P/F (BOOSTRIX) 0.5 ML VIAL IM ONE (10:03)
[2019-07-27] MEDS ORDERED: FLU QUADRIvalent (5+ YOA) 2019-2020 (AFLURIA) 0.5 ML IM ONE (10:03)
--- NOTE | 2019-07-27 10:26 | NUR ---
1018 TDAP GIVEN IM IN LEFT DELTOID. SITE CLEAR. 1026 FLU VACCINE GIVEN IM IN RIGHT DELTOID. SITE CLEAR.
--- NOTE | 2019-07-27 12:00 | NUR ---
BLOOD BANK HASN'T GOTTEN RHOGAM PREPARED R/T EMERGENT SITUATIONS.
[2019-07-27 14:00] VITALS: BP 116/72
[2019-07-27] MEDS: BENZOCAINE/MENTHOL (DERMOPLAST) 56 ML CAN TP PRN (14:35)
[2019-07-27] MEDS: WITCH HAZEL(TUCKS) 40 EA JAR TOP PRN (14:36)
--- NOTE | 2019-07-27 14:55 | NUR ---
DISCHARGE INSTRUCTIONS REVIEWED WITH COPY TO PT. STATES UNDERSTANDING OF ALL INSTRUCTIONS AND NEED TO F/U SCHEDULED AND NEEDED.
--- NOTE | 2019-07-27 15:15 | NUR ---
RHOGAM GIVEN IN RIGHT VG SITE. SITE CLEAR.
[2019-07-27 15:35] VITALS: BP 116/72
--- NOTE | 2019-07-27 15:35 | NUR ---
DISMISSED AMB FROM [facility] WITH IN STABLE CONDITION TO [facility] BY YOLANDA HARDEN.
== END 2019-07-27 15:35 | disposition home or self-care (01) | DRG 806 ==
LOC: WSo 12:51 → LDRP 12:52 → WSo 14:41 → LDRP 14:42 → WS 07-26 03:30
PROVIDERS: ADMIT Obstetrics & Gynecology; ATTEND Obstetrics & Gynecology
PROC: 3E033VJ Introduction of Other Hormone into Peripheral Vein, Percutaneous Approach (ICD-10-PCS; 2019-07-25)
PROC: 10E0XZZ Delivery of Products of Conception, External Approach (ICD-10-PCS; principal; 2019-07-26)
PROC: 0W8NXZZ Division of Female Perineum, External Approach (ICD-10-PCS; 2019-07-26)
DX: O76 Abnormality in fetal heart rate and rhythm complicating labor and delivery (principal); O90.81 Anemia of the puerperium; D62 Acute posthemorrhagic anemia; O63.0 Prolonged first stage (of labor); Z3A.38 38 weeks gestation of pregnancy; Z37.0 Single live birth; Z23 Encounter for immunization; Z88.0 Allergy status to penicillin
CPT/HCPCS: 36415; 81000; 83033; 85007; 85025; 85027; 86850; 86900; 86901; 87088; 90715; 99212